=== PATIENT | male | born 1955 | race Caucasian/White ===

== ENCOUNTER → 2017-04-16 16:25 | Outpatient (CLI) | payer BC, SELFPAY ==
[2017-04-16 17:29] LABS: Absolute Lymphocyte Count 1.87 X10^3/ul (0.83-4.51); Basophil# 0.03 X10^3/uL; Basophil% 0.4 % (0-1); Eosinophil# 0.17 X10^3/uL; Eosinophils% 2.5 % (0-5); Hematocrit 45.3 % (40-54); Hemoglobin 14.9 g/dl (13.0-16.5); Lymphocyte # 1.87 X10^3/ul (4.0); Lymphocyte % 27.4 % (19-41); Mean Corp Hgb Conc 32.9 g/gl (32-36); Mean Corpuscular Hgb 30.3 pg (27.0-32.0); Mean Corpuscular Volume 92.3 fL (80-94); Monocyte# 0.79 X10^3/uL; Monocyte% 11.6 % (0-10); Neutrophil # 3.95 X10^3/uL (2.7-7.7); Neutrophil % 57.8 % (47-70); Platelet Count 189 K/mm3 (150-450); RBC Distribution Width CV 13.7 % (11.6-14.6); RBC Distribution Width SD 46.1 fl (35.1-43.9); Red Blood Count 4.91 M/mm3 (4.6-6.2); White Blood Count 6.8 K/mm3 (4.4-11.0)
[2017-04-16 17:44] LABS: POSITIVE COUNT NO; POSITIVE DIFFERENTIAL NO; POSITIVE MORPHOLOGY NO
[2017-04-16 18:13] LABS: ALB/GLOB Ratio 1.3 RATIO (0.9-2.4); AST(SGOT) 17 U/L (15-37); Alanine Aminotransfer ALT/SGPT 29 U/L (16-61); Albumin, Serum 4.2 g/dL (3.2-5.0); Alkaline Phosphatase 76 U/L (45-117); Anion Gap 5 (5-15); BUN 17 mg/dL (7-18); BUN/Creat Ratio 15.3 RATIO (10-20); Calcium,Total 8.4 mg/dL (8.5-10.1); Chloride 104 mmol/L (98-107); Creatinine, Serum 1.11 mg/dL (0.70-1.30); EST Glomerular Filtration Rate 71 mL/min (>60); Est Glom Filt Rate - Afr Amer 86 mL/min (>60); Globulin 3.2 g/dL (2.2-4.2); Glucose 62 mg/dL (74-106); PSA,Total - Annual Screen 1.99 ng/mL (0.00-4.00); Potassium 4.5 mmol/L (3.5-5.1); Protein, Total 7.4 g/dL (6.4-8.2); Sodium Level 138 mmol/L (136-145); Thyroid Stim Hormone (TSH) 0.87 uIU/mL (0.358-3.74)
[2017-04-18 11:13] LABS: Hep C Antibodies <0.1 s/co ratio (0.0-0.9)
== END ==
PROVIDERS: Family Provider Family Medicine Geriatric Medicine; PCP Family Medicine Geriatric Medicine; Visit Provider Family Medicine Geriatric Medicine
DX: Z13.89 Encounter for screening for other disorder (principal); Z12.5 Encounter for screening for malignant neoplasm of prostate; R53.83 Other fatigue
CPT/HCPCS: 36415; 80053; 84153; 84443; 85025; 86803; G0103

== ENCOUNTER → 2017-09-01 13:36 | Outpatient (CLI) | payer BC, SELFPAY | PROVIDERS: Family Provider Family Medicine Geriatric Medicine; PCP Family Medicine Geriatric Medicine; Visit Provider Family Medicine Geriatric Medicine | DX: N39.0 Urinary tract infection, site not specified (principal); R60.0 Localized edema | CPT/HCPCS: 36415; 85379; 87086 ==

== ENCOUNTER 2018-10-10 12:54 | Emergency (ER) | payer BC, SELFPAY ==
[2018-10-10 12:55] VITALS: BP 129/82; PULSE 74; RESP 18; TEMP 36.8; O2SAT 98; BMI 32.1
--- NOTE | 2018-10-10 13:21 | RAD_ITS ---
STUDY: X-RAY - LEFT HAND REASON FOR EXAM: Male, 63 years old. Trauma. Pain. Laceration to thumb TECHNIQUE: Three view(s) of the hand. COMPARISON: None. FINDINGS: Bones: Generalized osteopenia. Small ossific fragment at the first MCP joint which may represent a small avulsion fracture. Joints: Osteoarthrosis. Soft tissues: Soft tissue laceration in the CT Foreign body: None RAD/Hand Min 3 Views IMPRESSION: Soft tissue laceration with probable small avulsion fracture at the MCP joint. Osteopenia with osteoarthrosis. Electronically Signed: Dani Zhang MD at 13:57 EDT , Service support ,
--- NOTE | 2018-10-10 13:22 | ED.DCSUM_ITS ---
History of Present Illness Chief Complaint: Laceration Informant: Patient, Family Occurred: Today - JPTA Mechanism/Context: Injury Context: Sudden Onset Timing: Continuous Quality of Pain: Aching Current Severity: Mild Maximum Severity: Moderate Worsened by: moving Relieved by: remaining still Associated Symptoms: Negative for: Parasthesia, Weakness, Loss of Funtion Narrative: Patient is in very minimal amount of discomfort after injuring his left hand/thumb with a chainsaw with a new blade on it that accidentally kicked back. He is right-hand dominant. Denies any other injuries. No numbness distally in his thumb. He is not sure if he had tissue loss or not. Tetanus Immunization: 5-10 years - 10 yrs ago Past Medical History - Allergies and Home Meds Allergies/Adverse Reactions: Allergies No Known Allergies Allergy (Verified 10/10/18 12:57) Primary Care Physician: Care Physician,No Primary [Primary Care Provider] - Lives: With Family Drugs: None Review of Systems General: Denies: Chills, Fever, Sweats Gastrointestinal: Denies: Nausea, Vomiting Musculoskeletal: Reports: Extremity Pain. Denies: Swelling Skin: Reports: Wounds. Denies: Abscess Neurological: Denies: Headache, Weakness, Numbness Physical Exam Vital Signs/Narrative: Vital Signs Temp Pulse Resp BP Pulse Ox 10/10/18 12:55 98.3 F 74 18 129/82 H 98 General: Well nourished, Well developed, - - Well-appearing, NAD, conversive Head: Normocephalic, Atraumatic Extremeties: See skin exam for details of left hand laceration. He has full range of motion with all tendon abilities except for abduction of the thumb; he appears to have completely lacerated the abductor pollicis longus, when he attempts to abduct the thumb, it does abduct a little, probably because the brevis is intact, but the proximal longus tendon retracts back toward the wrist. Muscle in the thenar eminence is involved, there is no exposed bone or other important structure seen. There is minor venous oozing without any pulsatile arterial bleeding. Brisk cap refill thumb and fingers. Skin: Trauma - Full-thickness jagged, irregular wound to left hand involving the palm, thenar eminence, and the thumb, a total of approximately 10 cm in length. Questionable small amounts of tissue loss in the worst part near the thumb. No gross contamination seen. Neurological: Alert, Oriented x3, Cranial nerves II-XII grossly intact, Normal Strength, Normal Sensation Psychological: Normal affect, Normal Mood Diagnostic/Tx/Re-eval Clinical Impression(s) from Imaging Studies Hand X-Ray 10/10/18 13:21 IMPRESSION: Soft tissue laceration with probable small avulsion fracture at the MCP joint. Osteopenia with osteoarthrosis. Electronically Signed: Dani Zhang MD at 13:57 EDT , Service support , - Medical Decision Making Patient was sent an x-ray, it appears to show an avulsion fracture at the radial aspect of the distal thumb metacarpal. I do not see this clinically within the wound, but he clearly has complete laceration of his abductor pollicis longus, I believe. I do not see any other lacerated tendons and his range of motion is intact throughout. I discussed with Dr. De Jesus given that this was an open fracture, given the lack of gross contamination he does not think surgical washout would be necessary at this time. He recommends washing it out thoroughly at bedside which was done, close approximation with regards to suturing the wound, which was done, antibiotics, and close outpatient follow-up, he is having office hours within a couple days. I discussed with the patient to perform dressing changes within each few hours for the first day, drawing any bleeding away from the wound, replacing dressing with moist gauze and bacitracin ointment, keep a close eye for signs of any infection and to return to the ER immediately if he detects any. He was given an injection of Ancef here and a prescription for doxycycline given Dr. De Jesus's recommendation, and all questions answered at bedside they are comfortable with this overall plan. Discharged in a thumb spica Velcro splint so that he can easily take it off and perform dressing changes to inspect the wound. Procedures - Lacerations left hand/thumb Length: 10 cm Depth: Skin Shape: Stellate - w/ multiple flaps, probable small amount of tissue loss Prep: Sterile Conditions, Chlorhexadine Laceration repair: Irrigated, Lidocaine with epi - 2% (1% not avail), total 8cc Irrigated (ml): 250 - sterile saline under pressure Number of Sutures/[place]: 8 Suture Information: Ethilon, Simple, 4-0 Comment: Approximated fairly loosely, difficult to approximate tightly given multiple thin flaps of dermis, probable tissue loss, and complex stellate wound. Bleeding controlled. Tolerated well no complications. No gross contamination except for one small piece of wood on the surface of his skin near the laceration that was removed. ED Disposition - Plan for ED Patient: Disposition: Home or Assisted Living Diagnosis: Open fracture of shaft of metacarpal bone of left thumb, Laceration of left thumb with tendon involvement, Tetanus-diphtheria (Td) vaccination Instructions: LACERATION, Extrem (Suture, Staple or Tape), LACERATION, Tendon Prescriptions: Doxycycline Hyclate 1 cap PO BID #20 cap Prescription Printed Hydrocodone Bitart/Apap 5-325 [[place] 5MG-325MG] 1 tab PO Q4H PRN PRN 3 Days #18 tab PRN Reason: Pain Prescription Printed Referrals: Ralph De Jesus MD [STAFF PHYSICIAN] - 10/13/18 (call Tues AM for appt time on thursday office hours) Additional Instructions: Change dressing every 2 or 3 hours for the rest of today then as needed when dressings become wet/bloody tomorrow and thereafter. Wet the gauze, ring it out , placed on the wound with antibiotic ointment. Treat any pain with the prescription. When you are not doing dressing changes, keep the splint on. Avoid submerging your hand in any liquids. If you have any pus discharge, increasing redness, or swelling in your thumb, or fevers, return to the ER immediately.
[2018-10-10] MEDS: Diphth,Pertuss(Acell),Tet Vac 0.5 ML Vial IM (14:05)
[2018-10-10] MEDS: Cefazolin 1 GM/5 ML Vial IM (14:05)
[2018-10-10 15:02] VITALS: BP 141/89; PULSE 68; RESP 16; O2SAT 96
[2018-10-10 16:42] VITALS: BP 148/62; PULSE 78; RESP 18; O2SAT 99
== END 2018-10-10 16:43 | disposition home or self-care (01) ==
PROVIDERS: Emergency Provider Emergency Medicine
DX: S62.242B Displaced fracture of shaft of first metacarpal bone, left hand, initial encounter for open fracture (principal); S56.322A Laceration of extensor or abductor muscles, fascia and tendons of left thumb at forearm level, initial encounter; S61.022A Laceration with foreign body of left thumb without damage to nail, initial encounter; Z23 Encounter for immunization; W29.3XXA Contact with powered garden and outdoor hand tools and machinery, initial encounter; Y93.9 Activity, unspecified; Y92.9 Unspecified place or not applicable; M19.042 Primary osteoarthritis, left hand; M85.842 Other specified disorders of bone density and structure, left hand
CPT/HCPCS: 12004; 73130; 90471; 90715; 96372; 99285

== ENCOUNTER 2018-10-14 14:04 | Observation (INO) | payer BC, SELFPAY ==
[2018-10-12 16:02] VITALS: BMI 31.7
[2018-10-14] VITALS (9 sets, daily range): BP systolic 114–159; BP diastolic 60–99; PULSE 70–95; RESP 16–18; TEMP 35.9–37.4; O2SAT 95–100; BMI 31.6; BMI 31.7
--- NOTE | 2018-10-14 | MISC_PTH ---
PATIENT: RAND MELVIN LOC: [facility] U#:[id number] AGE/SX: 63/M ROOM: AR305 RE10/14/[address]: Dr. Ralph De Jesus MD : 1955 BED: 1 DIS: 10/15/2018 SPEC #: [id number] RECD: 10/14/18 13:48 STATUS: DUSTIN RELyssa #: [id number] UMANG: 10/14/18 00:[address]: Ralph De Jesus DEPT: SURGICAL PATHOLOGY RECD BY: Jeramy Ovalles ENTERED: 10/14/18 13:48 SP TYPE: [facility] [place]: Dr. Jarrett Lyon MD Tissues: A - Hand, NOS Bone of hand, NOS Procedures: Decalcification bone/plaque Surgery Specimen Level III HEADER OPERATION: Exploration laceration thumb and thenar eminence intrinsic PRE-OP DIAGNOSIS: 10 cm chain saw laceration left palm in thenar eminence area with extension onto dorsum left thumb just proximal to MP joint (zone 6); laceration intrinsic muscles thenar eminence left palm (abductor pollicis brevis, flexor pollicis brevis and opponens pollicis; extensor pollicis brevis tendon laceration dorsum left thumb just proximal to MP joint (zone 6); small avulsion fracture metacarpal head at MP joint left thumb TISSUE SUBMITTED: A - Soft tissue left hand at thenar eminence, B - Bone left hand at thenar eminence MICROSCOPIC DIAGNOSIS A. Soft tissue left hand at thenar eminence: Fragments of skin and fibroconnective and fibroadipose tissue with focal ulceration and associated acute and chronic inflammation. A few fragments of bone. A few fragments of refractile foreign material. B. Bone left hand at thenar eminence: A piece of bone with reactive changes. SJ:lakisha 10/20/18 MICROSCOPIC DESCRIPTION Slides are reviewed. GROSS DESCRIPTION A - Received in fixative is one container labeled with the patient's name and designated soft tissue left hand at thenar eminence. The specimen consists of multiple irregular fragments of pink-red soft tissue that in aggregate measure 2 x 2 x 0.3 cm. The entire specimen is submitted in one cassette. B - Received in fixative is one container labeled with the patient's name and designated bone left hand at thenar eminence. The specimen consists of a fragment of bone measuring 0.5 x 0.5 x 0.2 cm. The entire specimen is submitted in one cassette after decalcification. / SJ:lakisha 10/14/18 TC:2 CPT: 15150 x2, 67230
--- NOTE | 2018-10-14 00:11 | PCM.HP.BLA ---
History and Physical Date of Admission: 10/14/18 HISTORY OF PRESENT ILLNESS 63 year old man who is right hand dominant, sustained an injury to his left hand/thumb with a chainsaw on 10/10/18. There was a new blade on it, and there was accidental kickback. He denies numbness. He has difficulty flexing his left thumb into the palm. X-ray was done in the ED which showed a small avulsion fracture at the MP joint left thumb. The wound extended from the thenar eminence onto the dorsal surface left thumb just proximal to MP joint (zone 6). The wound was cleansed and suture repaired in the hospital. A thumb spica splint was applied. He was given scripts for Doxycycline and [place]. He has some pain in his left hand. He presents today for further evaluation and treatment. PAST MEDICAL HISTORY Hearing problem High cholesterol History of gangrene Hypothyroid Restless legs syndrome (RLS) PAST SURGICAL HISTORY removal of neoplasm of skin ALLERGIES No Known Allergies MEDICATIONS Doxycycline Hydrocodone Bitart/Apap 5-325 [[place] 5MG-325MG] Levothyroxine Sodium [Synthroid] Pravastatin ibuprofen meloxicam FAMILY HISTORY Other - Arthritis, High cholesterol, Thyroid disorder SOCIAL HISTORY Smoking Status: Former smoker alcohol intake: never substance use type: does not use REVIEW OF SYSTEMS General - Denies fever, fatigue, and weight loss. Eyes - Denies cataracts and glaucoma. ENT - Denies nasal congestion and sore throat. Endocrine - Denies excessive thirst and urination. Has thyroid disease. Skin - Denies suspicious lesions and skin cancer. Musculoskeletal - Has joint pain, joint stiffness, weakness of muscles and joints, back pain, and arthritis. Has laceration thenar eminence left palm with extension onto dorsal left thumb just proximal to MP joint (zone 6). Has small avulsion fracture at MP joint left thumb. Neuro - Denies headaches. Cardiovascular - Denies chest pain, fatigue, and shortness of breath with exertion. Psych - Denies anxiety and depression. Respiratory - Denies chronic cough and shortness of breath. Gastrointestinal - Denies nausea, vomiting, diarrhea, and constipation. Hematologic - Denies abnormal bruising and bleeding. Genitourinary - Denies hematuria and urinary frequency. PHYSICAL EXAMINATION General - Alert and Oriented. HEENT - PERRL. EOMI. Throat is clear. Neck - Supple and nontender. No cervical adenopathy. Lungs - Clear to auscultation. Heart - Regular rate and rhythm. Abdomen - Soft and nondistended. Extremities - FROM right upper extremity. Patient is right hand dominant. No axillary adenopathy. Radial pulses are palpable. In the left palm in the thenar eminence area with extension onto dorsum left thumb just proximal to MP joint is a 10 cm laceration (zone 6). It is suture repaired. Mild swelling seen. Has trouble with thumb flexion into the palm and thumb extension at the MP joint. Can flex and extend at the IP joint. No sensory deficits to pin prick. Neuro - CN II-XII grossly intact. Psych - Normal mood and affect. ASSESSMENT 1. 10 cm chain saw laceration left palm in thenar eminence area with extension onto dorsum left thumb just proximal to MP joint (zone 6). 2. Laceration intrinsic muscles thenar eminence left palm (abductor pollicis brevis (APB), flexor pollicis brevis (FPB), and opponens pollicis (OP)). 3. Extensor pollicis brevis (EPB) tendon laceration dorsum left thumb just proximal to MP joint (zone 6). 4. Small avulsion fracture metacarpal head at MP joint left thumb. 5. Former smoker. PLAN X-ray reviewed. Continue Doxycycline antibiotics. Recommend operative exploration of the complex wound left hand. Will repair the thenar muscles, APB, FPB, and OP. Will repair the extensor tendon laceration (EPB) in zone 6. If the palmar branch of the median nerve is injured, that will be repaired. Will check the EPL and FPL tendons as well. They may be partially injured and would be repaired as well. Will look at the small avulsion fracture at MP joint. It appears too small to fixate. Will probably just debride it and then proceed with a thumb spica splint. Surgery will be under general anesthesia and tourniquet control on an outpatient basis. Tissue that is debrided will be sent to Pathology for analysis. Depending on the muscle damage done by the chain saw, some tissue may be sent to Microbiology for culture. A positive culture will necessitate antibiotic therapy. Postop will need to go to OT for a silastic splint and after healing, then range of motion exercises, strengthening, and edema management. Patient was informed of the risks and complications of the procedure including alternatives to surgery. These were discussed with the patient personally. Patient voices understanding and wishes to proceed. Some of the risks and complications were included in a form from the [employer] [employer]. Some of the risks and complications that were discussed included but were not inclusive of failure to diagnose including symptom relief, pain, infection, numbness, stiffness, loss of digit, RSD (CRPS), need for further surgery, contracture, and wound healing problems.
[2018-10-14] MEDS: Cefazolin 2 GM in 0.9% Normal Saline 100 ML IV (09:21)
[2018-10-14] MEDS: Mupirocin Ointment 22gm Tube 1 APPLIC (11:00)
--- NOTE | 2018-10-14 11:42 | OP.PCM_ITS ---
Report of Operation Date of Procedure: 10/14/18 Pre-Operative Diagnosis: 1. 10 cm chain saw laceration left palm in thenar eminence area with extension onto dorsum left thumb just proximal to MP joint (zone 6). 2. Laceration intrinsic muscles thenar eminence left palm (abductor pollicis brevis (APB), flexor pollicis brevis (FPB), and opponens pollicis (OP)). 3. Extensor pollicis brevis (EPB) tendon laceration dorsum left thumb just proximal to MP joint (zone 6). 4. Small avulsion fracture metacarpal head at MP joint left thumb. 5. Former smoker. Post-Operative Diagnosis: 1. 10 cm chain saw laceration left palm in thenar eminence area with extension onto dorsum left thumb just proximal to MP joint (zone 5-6). 2. Laceration intrinsic muscles thenar eminence left palm (abductor pollicis brevis (APB), flexor pollicis brevis (FPB), and opponens pollicis (OP)). 3. Extensor pollicis brevis (EPB) tendon laceration dorsum left thumb at MP joint (zone 5). 4. Small avulsion fracture radial aspect metacarpal head near MP joint left thumb. 5. Radial collateral ligament injury MP joint left thumb. 6. Former smoker. Surgery/Procedure Performed:: 1. Exploration 10 cm chain saw laceration left palm in thenar eminence area with extension onto dorsum left thumb just proximal to MP joint (zone 5-6) with 14 complex closure. 2. Repair laceration intrinsic muscles thenar eminence left palm (abductor pollicis brevis (APB), flexor pollicis brevis (FPB), and opponens pollicis (OP)). 3. Repair extensor pollicis brevis (EPB) tendon laceration dorsum left thumb at MP joint (zone 5). 4. Debridement small avulsion fracture radial aspect metacarpal head near MP joint left thumb. 5. Repair radial collateral ligament injury MP joint left thumb. Description of Surgical Findings:: 63 year old man who is right hand dominant, sustained an injury to his left hand/thumb with a chainsaw on 9/1/19. There was a new blade on it, and there was accidental kickback. He denies numbness. He has difficulty flexing his left thumb into the palm. X-ray was done in the ED which showed a small avulsion fracture at the MP joint left thumb. The wound extended from the thenar eminence onto the dorsal surface left thumb just proximal to MP joint (zone 6). The wound was cleansed and suture repaired in the hospital. A thumb spica splint was applied. He was given scripts for Doxycycline and [place]. He has some pain in his left hand. Patient was informed of the risks and complications of the procedure including alternatives to surgery. These were discussed with the patient personally. Patient voices understanding and wishes to proceed. Some of the risks and complications were included in a form from the [place] [employer]. Some of the risks and complications that were discussed included but were not inclusive of failure to diagnose including symptom relief, pain, infection, numbness, stiffness, loss of digit, RSD (CRPS), need for further surgery, contracture, and wound healing problems. Total tourniquet time - 110 minutes. Size of wound defect thenar eminence left palm - 4 x 1.5 cm. Length of wound closure thenar eminence left palm and left thumb - 14 cm. Extensor pollicis longus (EPL) tendon intact. Flexor pollicis longus (FPL) tendon intact. Radial digital nerve intact. 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 Left thenar eminence and thumb soft tissue to Pathology and Microbiology. 2. Left thumb metacarpal bone avulsion fracture to Pathology and Microbiologoy. Drains: None. Estimated Blood Loss (mL): 25 ml. Description of Procedure: Patient was taken to OR in supine position and was placed under general anesthesia. The left hand was prepped and draped in the usual fashion. SCD's were placed for DVT prophylaxis. Perioperative antibiotics were given intravenously. The left hand was elevated and was wrapped with an Esmarch bandage. The tourniquet was elevated to 250 mmHg. Using loupe magnification, the sutures were removed. The thenar muscles were lacerated and there was under mining proximally toward the wrist. There was an extensor tendon injury (EPB) over the MP joint of the thumb (zone 5). The wound was extended in a proximal and distal direction in a zig zag fashion to get better exposure to the injuries. The MP joint was lax as there was a radial collateral ligament injury. There is a small avulsion fracture radial aspect metacarpal head near MP joint left thumb, and the bone was debrided. The metacarpal bone was stable with no evidence of instability. There was some nonviable muscle edges that was debrided. The radial collateral ligament was repaired with 3-0 Vicryl figure of eight interrupted sutures. The extensor pollicis brevis (EPB) tendon laceration was repaired with 4-0 Nylon figure of eight interrupted sutures. There was injury to the thenar muscles (abductor pollicis brevis (APB), flexor pollicis brevis (FPB), and opponens pollicis (OP)). They were repaired without tension with 3-0 Vicryl figure of eight interrupted sutures. The extensor pollicis longus (EPL) tendon was seen and intact and preserved. The flexor pollicis longus (FPL) tendon was seen at the base of the thenar muscle injury and it was intact and preserved. The radial digital nerve of the thumb was seen and intact and preserved. I could not identify the palmar cutaneous branch of the median nerve as it traverses over the thenar muscles secondary to the oscillating nature of the chain saw injury leading to some tissue loss. The wounds were irrigated with saline. The soft tissue and bone was sent to Pathology and Microbiology for analysis to evaluate for infection and for osteomyelitis. The tourniquet was released after 110 minutes. Hemostasis obtained with compression and elevation and electrocautery. The wounds were then closed with 5-0 Nylon s imple interrupted sutures and vertical mattress interrupted sutures. Due to the severity of the injury and the swelling present and the amount of tissue debrided, there was a portion of the wound on the thenar eminence that was left open. The wound measured 4 x 1.5 cm. The length of the wound that was closed was 14 cm. I packed the thenar eminence wound with 4x4 gauze and Betadine. I placed Bactroban ointment over the suture lines. The wounds were then dressed with Xeroform gauze and 4x4 gauze followed by a dry Kerlix gauze and a plaster thumb spica splint and compression YVONNE wrap. Patient tolerated the procedure well and was sent to PACU in satisfactory condition. Preoperatively the patient stated he wanted to go home and will be sent home on antibiotics and pain medication and Valium for spasm. Patient will followup in the office tomorrow for a wound dressing change and will instruct the family on the dressing change and for discussion of the pathology report and Microbiology report. A positive culture may necessitate antibiotic modification. The sutures will be removed in two weeks. I discussed with the patient and his family that due to the severity of the wounds, the postop pain may be severe enough to need IV analgesia in which case he would be admitted for a surgical observation overnight stay in the hospital. They will let me know prior to discharge whether he still wants to go home or whether he wants to spend the night. Grafts/Implants Used: Thumb spica plaster splint. - Complications None. - Admit VTE Documentation VTE Present on Admission: No VTE Mechan Device Prophylaxis: SCD's VTE Pharm Prophylaxis ordered?: No Code Visit Surgery Charges CPT - 36769 ICD-10 - W31.2xxA, S66.422A, S62.292B, S66.222A, S69.92xA, Z87.891 09727 W31.2xxA, S66.422A, S62.292B, S66.222A, S69.92xA, Z87.891 [id number] W31.2xxA, S66.422A, S62.292B, S66.222A, S69.92xA, Z87.891 [id number] W31.2xxA, S66.222A, S62.292B, S69.92xA, S66.422A, Z87.891 09953 W31.2xxA, S69.92xA, S66.422A, S66.222A, S62.292B, Z87.891 [id number] W31.2xxA, S62.292B, S69.92xA, S66.422A, S66.222A, Z87.891 [id number] W31.2xxA, S66.422A, S66.222A, S69.92xA, S62.292B, Z87.891 52739 W31.2xxA, S66.422A, S66.222A, S69.92xA, S62.292B, Z87.891 [id number] W31.2xxA, S66.422A, S66.222A, S69.92xA, S62.292B, Z87.891
[2018-10-14] MEDS: Lactated Ringers 1,000 ML 100 ML IV ×3 (11:54→23:10)
--- NOTE | 2018-10-14 11:55 | DCINST_ITS ---
You will use the following diet at home:: No restrictions, Other - encourage nutritional supplementation with protein to help the healing process. Discharge Activity: May Not Drive, May Shower - wear plastic bag over left hand when showering. Return to work on:: 12/10/18 - tentative. May shower in (days): 1 - wear plastic bag over left hand when showering. May resume sexual activity in: 10-14 days Weight Bearing Status: Weight bearing as tolerated Lifting Restrictions: no lifting with left hand. Keep extremity elevated above heart level: Left Arm Call your doctor if your incision/area has: Continuous Slow Oozing, Sudden Increased Bleeding, Increased Pain/ Swelling, Increased Redness, Foul Smelling Discharge, Swelling at the incision site Call your doctor if you observe: Fever of 101 or Higher, Coldness, Increased Pain, Shortness of breath, Chest pain, Calf discomfort, Uncontrolled pain Suture Line Care: - - will instruct patient on wound care after dressing change in office. Change Dressing in (Days):: 1 - will change in office. Cleanse incision/area with: - - wear plastic bag over left hand when showering. Additional Dressing/Incision Instructions:: Will instruct patient and family on dressing changes wound care after first operative dressing change in office tomorrow. Allergies/Adverse Reactions: Allergies No Known Allergies Allergy (Verified 10/13/18 09:39) Medications to take at Discharge Hydrocodone Bitart/Apap 5-325 [[place] 5/325] 1 tab PO Q4H PRN PRN 3 Days #18 tab 10/10/18 Levothyroxine Sodium [Synthroid] 150 mcg PO DAILY 10/10/18 Pravastatin Sodium 80 mg PO QHS 10/10/18 meloxicam 7.5 mg tablet 7.5 mg PO DAILY 10/12/18 Diazepam [Valium] 5 mg PO 4X/DAY PRN PRN #30 tab 10/14/18 Doxycycline Hyclate 1 cap PO BID #30 cap 10/14/18 HYDROmorphone tablet [Dilaudid] 2 - 4 mg PO 4X/DAY PRN PRN 7 Days #50 tab 10/14/18 Lactobacillus Acidophilus/Fos [Acidophilus Probiotic Tablet] 1 ea PO BID #60 tab 10/14/18 The following prescriptions were given: Lactobacillus Acidophilus/Fos [Acidophilus Probiotic Tablet] 1 ea PO BID #60 tab Prescription Printed HYDROmorphone tablet [Dilaudid] 2 - 4 mg PO 4X/DAY PRN PRN 7 Days #50 tab PRN Reason: Pain Prescription Printed Doxycycline Hyclate 1 cap PO BID #30 cap Prescription Printed Diazepam [Valium] 5 mg PO 4X/DAY PRN PRN #30 tab PRN Reason: Spasms Prescription Printed Primary Care Physician: Jarrett Lyon MD [Primary Care Provider] - Test Results: Test results from this visit will be discussed in further detail at your follow- up appointment, if applicable. Please Follow Up With: Ralhp De Jesus MD When: pedrito 10/15/18. call [phone] for appt. Proposed Discharge Date: 10/14/18
[2018-10-14] MEDS: HYDROmorphone 2 MG TABLET PO ×2 (12:30→17:30)
[2018-10-14] MEDS: HYDROmorphone 1 MG/ML Syringe IV (19:18)
[2018-10-14] MEDS: Docusate Sodium 100 MG Capsule PO (20:51)
--- NOTE | 2018-10-14 21:43 | PCM.PN.BLA ---
Progress Note Patient complained of increasing pain after his surgery today, and po analgesia was not effective. Will admit him overnight for surgical observation and for IV analgesic pain control. Anticipate discharge home tomorrow. Will change his dressing prior to discharge and do an Aquacel Silver dressing change.
[2018-10-15 05:57] VITALS: BP 112/68; PULSE 82; RESP 18; TEMP 37.3; O2SAT 96
[2018-10-15] MEDS: 0.9% NaCl Peripheral Flush Adult/Peds IV ×2 (06:05→10:11)
[2018-10-15] MEDS: HYDROmorphone 2 MG TABLET PO (06:05)
[2018-10-15 06:22] LABS: Hematocrit 41.1 % (40-54); Hemoglobin 13.5 g/dL (13.0-16.5); Mean Corp Hgb Conc 32.8 g/dL (32-36); Mean Corpuscular Hgb 30.7 pg (27.0-32.0); Mean Corpuscular Volume 93.4 fL (80-94); Mean Platelet Vol. 10.2 fl (6.2-12.0); Platelet Count 245 K/mm3 (150-450); RBC Distribution Width CV 12.6 % (11.6-14.6); RBC Distribution Width SD 43.1 fl (35.1-43.9)
[2018-10-15 06:45] LABS: Anion Gap 7 (5-15); BUN 18 mg/dL (7-18); BUN/Creat Ratio 20.8 RATIO (10-20); Calcium,Total 8.9 mg/dL (8.5-10.1); Chloride 105 mmol/L (98-107); Creatinine, Serum 0.87 mg/dL (0.70-1.30); EST Glomerular Filtration Rate 95 mL/min (>60); Est Glom Filt Rate - Afr Amer 114 mL/min (>60); Estimated Creatinine Clearance 98.22 ml/min; Glucose 99 mg/dL (74-106); Prealbumin 18.1 mg/dL (20.0-40.0); Sodium Level 142 mmol/L (136-145)
[2018-10-15 08:21] VITALS: BP 127/72; PULSE 95; RESP 16; TEMP 37.1; O2SAT 96
[2018-10-15 08:40] VITALS: PULSE 95; RESP 16; O2SAT 96
[2018-10-15] MEDS: Lactated Ringers 1,000 ML 100 ML IV (09:32)
[2018-10-15] MEDS: Docusate Sodium 100 MG Capsule PO (09:33)
[2018-10-15] MEDS: HYDROmorphone 1 MG/ML Syringe IV (10:11)
--- NOTE | 2018-10-15 10:58 | PCM.PN.SRG ---
- Physical Exam General: Alert, Oriented x3, Cooperative HEENT: Atraumatic Oral: Moist Mucosa Lungs: Clear to auscultation, Normal air movement Cardiovascular: Regular rate, Regular Rhythm Abdomen: Bowel Sounds Present Extremities: Cool - Left hand pink but cool to touch. Capillary refill < 3 seconds all fingers and thumb. Radial and ulnar pulses palpable and strong., Edema, Tenderness - Left hand and left thumb with tenderness with palpation and movement. Skin: Ulcer/ Wound - Left palmar and left thumb. Opened area beefy pink. Sutures intact. Musculoskeletal: No Tenderness to Palpation of Joints or Extremities Neurological: Cranial nerves II-XII grossly intact, Neuro grossly intact Psych/Mental Status: Normal Affect, Appropriate Vital Signs Temp Pulse Resp BP Pulse Ox 98.8 F 95 16 127/72 H 96 10/15/18 08:21 10/15/18 08:21 10/15/18 08:21 10/15/18 08:21 10/15/18 08:21 Oxygen Delivery Method Room Air Weight: 240 lb 4.862 oz Body Mass Index (BMI) 31.6 Intake and Output for Last 24 Hours 10/13/18 10/14/18 10/15/18 23:59 23:59 23:59 Intake Total 3748.34 / 3748.34 1863.33 / 1863.33 Output Total 1700 / 1700 2200 / 2200 Balance 2048.34 / 2048.34 -336.67 / -336.67 Microbiology Past 72 Hours 10/14/18 10:00 Gram Stain - Final Tissue - Finger 10/14/18 Unknown Gram Stain - Final Bone - Hand Laboratory Tests Past 24 Hrs 10/15/18 10/15/18 05:15 05:15 WBC 10.0 RBC 4.40 L Hgb 13.5 Hct 41.1 MCV 93.4 MCH 30.7 MCHC 32.8 RDW Std Deviation 43.1 RDW Coeff of [place] 12.6 Plt Count 245 MPV 10.2 Sodium 142 Potassium 4.0 Chloride 105 Carbon Dioxide 30.0 Anion Gap 7 BUN 18 Creatinine 0.87 Estim Creat Clear Calc 98.22 Est GFR (MDRD) Af Amer 114 Est GFR (MDRD) Non-Af 95 BUN/Creatinine Ratio 20.8 H Glucose 99 Calcium 8.9 Prealbumin 18.1 L Medical Necessity - Tobacco Use Smoking Status: Former smoker Tobacco Use: Non-smoker Assessment/Plan All Active Problems (Last Updated 10/12/18 @ 15:56 by Eva Brady) Open fracture of head of first metacarpal bone of left hand (Acute) Laceration of extensor muscle, fascia and tendon of left thumb at wrist and hand level, initial encounter (Acute) Laceration of intrinsic muscle, fascia and tendon of left thumb at wrist and hand level, initial encounter (Acute) Contact with powered saw as cause of accidental injury (Acute) Postop Day 1 from where he underwent exploration 10 cm chain saw laceration left palm in thenar eminence area with extension onto dorsum left thumb just proximal to MP joint (zone 5-6) and repair laceration intrinsic muscles thenar eminence left palm (abductor pollicis brevis (APB), flexor pollicis brevis (FPB), and opponens pollicis (OP)) and repair extensor pollicis brevis (EPB) tendon laceration dorsum left thumb at MP joint (zone 5) and debridement small avulsion fracture radial aspect metacarpal head near MP joint left thumb and repair radial collateral ligament injury MP joint left thumb. Patient's pain is well controlled with the Dilaudid. Surgical wound is clean and dry. Dressing was change by wound care nurse. Capillary refill < 3 seconds on left thumb and fingers. Instructed family that they do not need to change the dressing over the weekend. Encouraged patient to keep left hand elevated to help decrease pain and edema. He has an appointment at 4:00 at the office Thursday10/18/18. Discharge home today. Dr. De Jesus has written his prescriptions.
--- NOTE | 2018-10-15 11:20 | NURSING ---
wound photo: left thumb
--- NOTE | 2018-10-15 11:21 | NURSING ---
wound photo: left hand/thumb
[2018-10-15 11:42] VITALS: BP 140/72; PULSE 74; RESP 16; TEMP 36.6; O2SAT 97
== END 2018-10-15 11:50 | disposition home or self-care (01) ==
LOC: SDC 10-18 07:16 → MS3 10-18 07:16
PROVIDERS: Admitting Provider Surgery; Family Provider Family Medicine; PCP Family Medicine; Referring Provider Surgery; Visit Provider Surgery
PROC: (CPT 11044; principal; 2018-10-14 09:10)
DX: S62.292B Other fracture of first metacarpal bone, left hand, initial encounter for open fracture (principal); S66.222A Laceration of extensor muscle, fascia and tendon of left thumb at wrist and hand level, initial encounter; S66.422A Laceration of intrinsic muscle, fascia and tendon of left thumb at wrist and hand level, initial encounter; W29.3XXA Contact with powered garden and outdoor hand tools and machinery, initial encounter; Y93.9 Activity, unspecified; Y92.9 Unspecified place or not applicable; Y99.9 Unspecified external cause status; E03.9 Hypothyroidism, unspecified; E78.00 Pure hypercholesterolemia, unspecified; G25.81 Restless legs syndrome; Z79.899 Other long term (current) drug therapy; Z87.891 Personal history of nicotine dependence
CPT/HCPCS: 01810; 11044; 13132; 13133; 26418; 26540; 26591; 36415; 80048; 84134; 85027; 87070; 87075; 87077; 87102; 87176; 87205; 87206; 88304; 88305; 88311; 96361; 96365; 96366; 96375; 96376; 99218; J7120; A4216; G0378; G0379

== ENCOUNTER → 2018-11-12 09:57 | Outpatient (CLI) | payer BC, SELFPAY ==
[2018-11-09 10:08] VITALS: BMI 31.6
[2018-11-12 13:17] LABS: AST(SGOT) 17 U/L (15-37); Alanine Aminotransfer ALT/SGPT 32 U/L (16-61); Albumin, Serum 3.7 g/dL (3.2-5.0); Alkaline Phosphatase 99 U/L (45-117); Anion Gap 9 (5-15); BUN 25 mg/dL (7-18); Calcium,Total 8.8 mg/dL (8.5-10.1); Chloride 103 mmol/L (98-107); Creatinine, Serum 1.19 mg/dL (0.70-1.30); EST Glomerular Filtration Rate 66 mL/min (>60); Est Glom Filt Rate - Afr Amer 79 mL/min (>60); Globulin 3.6 g/dL (2.2-4.2); Glucose 98 mg/dL (74-106); Protein, Total 7.3 g/dL (6.4-8.2); Sodium Level 139 mmol/L (136-145)
== END ==
PROVIDERS: Family Provider Family Medicine; PCP Family Medicine; Referring Provider Nurse Practitioner Family; Visit Provider Nurse Practitioner Family
DX: S66.422A Laceration of intrinsic muscle, fascia and tendon of left thumb at wrist and hand level, initial encounter (principal); S66.222A Laceration of extensor muscle, fascia and tendon of left thumb at wrist and hand level, initial encounter; W31.2XXA Contact with powered woodworking and forming machines, initial encounter
CPT/HCPCS: 36415; 80053

== ENCOUNTER 2018-12-06 11:30 | Outpatient (RCR) | payer BC, SELFPAY ==
[2018-10-22 10:33] VITALS: BMI 31.6
[2018-10-25 16:56] VITALS: BMI 31.6
--- NOTE | 2018-10-26 15:21 | HP.OTEVAL ---
Patient's Visit Information RAND MELVIN is a 63 year old M, referred to Occupational Therapy by Ralph De Jesus MD, with a diagnosis of laceration of left hand. Date of Evaluation: 10/26/18 Occupational Therapist: Marizol Jones, MOMOR/Tanner, CHT - Subjective Subjective: This 63 year old male was seen for OT eval following a chain saw injury on 10/10/18 and sx was on 10/14/18. pt suffered a 10 cm chain saw laceration left palm in thenar eminence area with extension onto dorsum left thumb just proximal to MP joint (zone 5-6). 2. Laceration intrinsic muscles thenar eminence left palm (abductor pollicis brevis (APB), flexor pollicis brevis (FPB), and opponens pollicis (OP)). 3. Extensor pollicis brevis (EPB) tendon laceration dorsum left thumb at MP joint (zone 5). 4. Small avulsion fracture radial aspect metacarpal head near MP joint left thumb. 5. Radial collateral ligament injury MP joint left thumb. Pt arrives with sx dressing on. reports min. amount of pain but when hand is down he does get throbbing pain and swelling. Pt arrives for custom orthosis and protocol for recovery. - ADLs Dressing: Button shirt, Pants, Socks, Shoes Fasteners: Tie shoes, Buttons, Zippers Eating: Use silverware Bathing: Handle washcloth & soap Toileting: Manage clothing Comments: pt limited with all ADLS and IADLs at this time as pt is unable to use left hand for ADLs and IADLs at this time. can assist with ADLs as needed. - Pain left hand 2 Pain Intensity Range: 0, 4 - ROM Wrist: right WNL left will measure later date CMC: right WNL left will measure later date MP: right WNL left will measure later date IP: right WNL left will measure later date - Strength Epic Application Coordinator: right 110# left NT Lateral Pinch: right 20# left NT Tripod Pinch: right 18# left NT - Sensation Sensation Comments: denies - Quick DASH-Disab of Arm,Shoulder& Hand Quick DASH Score: 71.6650 - Goals Goal:100% adherence to protocol: Yes Comment: EPB zone 5 repair, APB, FPB,OP, FPL protocol Goal:Daily scar massage when approriate: Yes Goal:ROM equal to unaffected hand: Yes Goal:Epic Application Coordinator/Pinch strength at least 75% of unaffected hand: Yes Goal:No pain with affected hand use: Yes Goal:PIP Circumferences equal to unaffected hand: Yes Goal:Full use of affected hand in daily activities including: Yes Goal:Decrease scar hypersensitivity: Yes - Rehabilitation General Assessment: 10 cm chain saw laceration left palm in thenar eminence area with extension onto dorsum left thumb just proximal to MP joint (zone 5-6). 2. Laceration intrinsic muscles thenar eminence left palm (abductor pollicis brevis (APB), flexor pollicis brevis (FPB), and opponens pollicis (OP)). 3. Extensor pollicis brevis (EPB) tendon laceration dorsum left thumb at MP joint (zone 5). 4. Small avulsion fracture radial aspect metacarpal head near MP joint left thumb. 5. Radial collateral ligament injury MP joint left thumb. Pt demo need for skilled OT services 1-2x week for 8 weeks. Today custom orthosis was marin. keeping wrist in 20* flex and thumb in proper abd. position to protect tendon repairs. Pt and were ed. on use and care of the orthosis and protocol therapist will follow to ensure recovery from tendon repairs. Pt was instructed in tendon glide ex for digits, shoulder, elbow, forearm ROM to limit edema. pt demo understanding. Pt and demo understanding and agree to POC. Rehabilitation Potential: Good - Anticipated Interventions Anticipated Interventions: Early Active Motion, A/AAROM/PROM, Strengthening, Edema Control, Scar Care, Triggerpoint Release, Desensitization, Wound Care, Modalities, Orthoses, Joint Protection/Energy Conservation, Ergonomic Education, Fine Motor Coord/Willie - Visit Plan Frequency: 1-2x /Week Duration: 2 Months TEXT: Thank you for the opportunity to evaluate your patient. For Medicare and Medicare HMO plans, please review the plan of care and approve it. It will need to be FAXED BACK to us at [phone] for Medicare purposes. Please let me know if there are questions or concerns regarding this plan of care. Physician Signature: Date:
--- NOTE | 2019-02-23 10:17 | HP.OTDCSUM_ITS ---
HP - OT D/C Summary It has been my pleasure to treat RAND MELVIN under orders from Ralph De Jesus MD, for the diagnosis of laceration of left hand for a total of 8 visit(s). Please see the following information for a summary of their discharge status. 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 left MP 20* - Goals Patient Goals: Regain Mobility, Regain Strength, Return to Work, Improve Fine Motor Skills, Use Hand/Wrist/Arm Normally Again, Learn to Manage Lymphedema, Be More Independent in ADLS Goal:100% adherence to protocol: Yes Goal:Daily scar massage when approriate: Yes Goal:ROM equal to unaffected hand: Yes Goal:Oiler Bander/Pinch strength at least 75% of unaffected hand: Yes Goal:No pain with affected hand use: Yes Goal:PIP Circumferences equal to unaffected hand: Yes Goal:Full use of affected hand in daily activities including: Yes Goal:Decrease scar hypersensitivity: Yes - Plan Plan: return to for D/c - D/C Information Discharge Comments: Pt has done well in OT and is D/C with HEP and to cont. use of affected hand with normal daily tasks. If there are questions or concerns regarding this patient's occupational therapy, please fell free to call me at [phone]. Thank you for the referral of this patient. Sincerely, Marizol Jones, OTR/L, CHT
== END 2018-12-06 19:00 | disposition home or self-care (01) ==
LOC: OT 11:30
PROVIDERS: Family Provider Family Medicine; PCP Family Medicine; Visit Provider Surgery
DX: S66.4 Injury of intrinsic muscle, fascia and tendon of thumb at wrist and hand level (principal); S66.222D Laceration of extensor muscle, fascia and tendon of left thumb at wrist and hand level, subsequent encounter; S62.292B Other fracture of first metacarpal bone, left hand, initial encounter for open fracture; W31.2XXD Contact with powered woodworking and forming machines, subsequent encounter
CPT/HCPCS: 97035; 97110; 97140; 97166; 97530; 97760

== ENCOUNTER → 2018-12-09 10:50 | Outpatient (CLI) | payer BC, SELFPAY ==
[2018-12-09 10:29] VITALS: BMI 31.6
[2018-12-09 12:29] LABS: ALB/GLOB Ratio 1.1 RATIO (0.9-2.4); AST(SGOT) 21 U/L (15-37); Alanine Aminotransfer ALT/SGPT 33 U/L (16-61); Alkaline Phosphatase 106 U/L (45-117); Anion Gap 6 (5-15); BUN 23 mg/dL (7-18); BUN/Creat Ratio 22.1 RATIO (10-20); Calcium,Total 9.2 mg/dL (8.5-10.1); Chloride 104 mmol/L (98-107); Creatinine, Serum 1.04 mg/dL (0.70-1.30); EST Glomerular Filtration Rate 77 mL/min (>60); Est Glom Filt Rate - Afr Amer 93 mL/min (>60); Globulin 3.7 g/dL (2.2-4.2); Glucose 101 mg/dL (74-106); Potassium 4.2 mmol/L (3.5-5.1); Protein, Total 7.7 g/dL (6.4-8.2); Sodium Level 139 mmol/L (136-145)
== END ==
PROVIDERS: Family Provider Family Medicine; PCP Family Medicine; Referring Provider Nurse Practitioner Family; Visit Provider Nurse Practitioner Family
DX: S62.292B Other fracture of first metacarpal bone, left hand, initial encounter for open fracture (principal); S66.222A Laceration of extensor muscle, fascia and tendon of left thumb at wrist and hand level, initial encounter; S66.422A Laceration of intrinsic muscle, fascia and tendon of left thumb at wrist and hand level, initial encounter
CPT/HCPCS: 36415; 80053

== ENCOUNTER → 2020-11-05 08:55 | Outpatient (CLI) | payer BC, SELFPAY ==
[2018-12-09 10:29] VITALS: BMI 31.6
--- NOTE | 2020-11-05 09:13 | RAD_ITS ---
PROCEDURE: Fluoroscopic guided Hip Injection DATE: 11/05/2020. INDICATION: Male, 65 years old. Chronic left hip pain. PHYSICIAN: Thomas Rose M.D. MEDICATIONS: 40 mg of the KENALOG and 4 cc of 1% LIDOCAINE. 2% lidocaine administered subcutaneously for local anesthesia. ACCESS SITE: Left hip. NEEDLE: 22-gauge spinal needle. FLUOROSCOPY TIME (if supplied): (0:40) minutes/seconds FINDINGS: The risks, benefits, and alternatives to the procedure were explained to the patient. The specific risks of bleeding, infection, and neurovascular injury were detailed and accepted. Witnessed informed consent was obtained. A 22-gauge spinal needle was positioned under radiographic fluoroscopic localization. Approximately 2 cc of ISOVUE-300 instilled for localization purposes. Medication was then injected. The patient tolerated the procedure well without any immediate complications. RAD/Inj/Asp Wood Jt Should/Hip/Knee IMPRESSION: 1. Successful fluoroscopic guided hip injection. Electronically Signed: Thomas Rose MD at 9:49 EDT , Service support ,
[2020-11-05] MEDS: Lidocaine 1% (5 ml sdv) 5 ML Vial 4 ML OPERA.SITE (09:30)
[2020-11-05] MEDS: Lidocaine 2% (5ml sdv) 5 ML VIAL.MPF INFILT (09:30)
[2020-11-05] MEDS: Triamcinolone Acetonide 40 MG/ML Vial INTRAARTIC (09:30)
== END ==
LOC: RAD 08:57
PROVIDERS: PCP Family Medicine
DX: M16.12 Unilateral primary osteoarthritis, left hip (principal); G89.29 Other chronic pain
CPT/HCPCS: 20610; 77002

== ENCOUNTER → 2021-09-03 | Outpatient (CLI) | payer BC, SELFPAY ==
--- NOTE | 2021-09-03 16:34 | MRI_ITS ---
STUDY: MRI CERVICAL SPINE WITHOUT CONTRAST REASON FOR EXAM: Male, 66 years old. Neck pain, numbness in right arm and hand. TECHNIQUE: Standardized fat and water weighted pulse sequences were obtained in the sagittal and axial planes. COMPARISON: None FINDINGS: Normal foramen magnum and brainstem-cervical cord junction. Normal craniovertebral junction. Normal anterior atlantoaxial articulation. Normal odontoid process. Normal cervical lordosis. Degenerative bodies and posterior osseous elements. C2-3: Disc desiccation and relatively preserved disc space with minimal facet arthropathy and uncovertebral joint arthropathy without significant spinal canal narrowing or foraminal narrowing. C3-4: Degenerative disc changes and mild decreased disc space with minimal broad-based disc bulge with compounding facet arthropathy and uncovertebral joint arthropathy resulting in mild bilateral foraminal narrowing. C4-5: Degenerative disc changes and mild decreased disc space with bilateral facet arthropathy and uncovertebral joint arthropathy resulting in mild bilateral foraminal narrowing. C5-6: Disc desiccation and degenerative disc changes with mild decreased disc space. There is broad base disc bulge/disc osteophyte complex resulting in moderate right and left foraminal narrowing. Disc osteophyte complex abuts the ventral cord at this level with moderate spinal canal narrowing with anterior posterior space measuring 7 mm with normal anterior posterior diameter of 13 mm. C6-7: Degenerative disc changes and broad-based disc bulge is present with resultant moderate bilateral foraminal narrowing and moderate spinal canal narrowing with AP diameter measuring 9 mm. C7-T1: Normal endplates. Normal disc height, signal and morphology. Normal central canal and intervertebral neural foramina. Normal cervical cord. Normal visualized soft tissue structures. MRI/Spine Cervical (Routine) IMPRESSION: 1. C5-6 broad-based disc bulge/disc osteophyte complex resulting in moderate bilateral foraminal narrowing and spinal canal narrowing with AP diameter measuring 7 mm (normal 13 mm). 2. C6-7 moderate spinal canal narrowing due to broad-based disc bulge with AP spinal canal diameter measuring 9 mm (normal 13 mm). Moderate bilateral foraminal narrowing at this level is also noted. Additional degenerative changes as above. Electronically Signed: Georges Vines DO at 12:49 EDT ,
== END | disposition home or self-care (01) ==
LOC: MRI 16:34
PROVIDERS: PCP Family Medicine; Visit Provider Orthopaedic Surgery
DX: M50.20 Other cervical disc displacement, unspecified cervical region (principal)
CPT/HCPCS: 72141

== ENCOUNTER 2021-12-31 10:13 | Observation (INO) | payer BC, SELFPAY ==
--- NOTE | 2021-12-24 14:40 | CASEMGMT ---
TC to pt for RN CM assessment, no answer and forwarded to an unidentified voicemail.
[2021-12-24 16:36] LABS: International Normalized Ratio 1.1; Prothrombin Time (Protime)PT. 13.7 SECONDS (11.7-14.9)
[2021-12-24 16:55] LABS: Hemoglobin A1c 5.3 % (3.8-5.6)
[2021-12-24 16:58] LABS: Magnesium 2.5 mg/dL (1.6-2.6); Thyroid Stim Hormone (TSH) 6.63 uIU/mL (0.358-3.74)
[2021-12-26 15:23] LABS: Fructosamine 222 umol/L (0-285)
[2021-12-31] VITALS (12 sets, daily range): BP systolic 120–156; BP diastolic 71–92; PULSE 52–86; RESP 10–16; TEMP 36.1–36.7; O2SAT 96–100; BMI 30.7; BMI 30.5
--- NOTE | 2021-12-31 | HIP_PTH ---
PATIENT: RAND MELVIN LOC: [facility] U#:[id number] AGE/SX: 66/M ROOM: TX313 RE12/31/[address]: Dr. Zain Dennis DO : 1955 BED: 1 DIS: 01/01/2022 SPEC #: [id number] RECD: 12/31/21 13:09 STATUS: DUSTIN RELyssa #: [id number] UMANG: 12/31/21 00:[address]: Zain Dennis DEPT: SURGICAL PATHOLOGY RECD BY: Jeramy Ovalles ENTERED: 12/31/21 13:10 SP TYPE: TOTAL HIP OTHR DR: Dr. Jarrett Lyon MD Tissues: Hip, NOS Procedures: Decalcification bone/plaque Surgery Specimen Level IV HEADER OPERATION: ERAS, total hip replacement PRE-OP DIAGNOSIS: Osteoarthritis of left hip TISSUE SUBMITTED: Left hip bone MICROSCOPIC DIAGNOSIS Left hip bone, total hip replacement/resection: Femoral head with degenerative osteoarthritic changes. Fragments of fibroadipose tissue, fibroconnective tissue and reactive synovial tissue. DANIEL:lakisha 01/03/2022 MICROSCOPIC DESCRIPTION Slides are reviewed. GROSS DESCRIPTION Received is one container labeled with the patient's name and designated left hip bone. The specimen consists of a de la cruz femoral head with portion of femoral neck. The femoral head measures 4.5 x 4.5 x 4.5 cm and portion of the femoral neck measures up to 1.4 cm in length. The articular surface displays prominent osteophyte formation, eburnation and bone erosion. Also present in the specimen container are multiple irregular fragments of bone reamings and pink-yellow soft tissue measuring in aggregate 7 x 7.5 x 2 cm. Book Jogger sections are submitted in two cassettes as follows: 1 - soft tissue, 2 - bone after decalcification. / DANIEL:lakisha 12/31/2021 TC:5 CPT: 35791, 37693
[2021-12-31] MEDS: Lactated Ringers 1,000 ML 999 ML IV (06:57)
[2021-12-31] MEDS: Gabapentin 600 MG Tablet PO (06:58)
[2021-12-31] MEDS: Acetaminophen 500 MG Tablet 1000 MG PO ×3 (06:58→21:36)
[2021-12-31] MEDS: Celecoxib 200 MG Capsule 400 MG PO (06:58)
[2021-12-31] MEDS: Scopolamine 1mg/72hr Patch 1 PATCH TD (07:03)
[2021-12-31] MEDS: Lactated Ringers 1,000 ML 100 ML IV (07:04)
--- NOTE | 2021-12-31 07:30 | PCM.HP.BLA ---
History and Physical Date of Admission: 12/31/21 [facility] [address] [place] [address] OFFICE VISIT Date of Service:? 12/09/21 MR#: [id number] Acct: [id number] Name:RAND MYERS Rep #: [id number] : 1955 ? ? Provider: Dr. Zain Dennis, DO Age/Sex:? 66/M ? ? Location: [facility] [place] Status: Signed Intake Vital Signs ? 12/09/2214:07 Height 6 ft 1 in Weight: 241 lb 4 oz BMI 31.8 Intake Visit Reasons:?LEFT HIP Chief Complaint: left hip Is patient in pain?: Yes Allergies No Known Allergies Allergy (Verified 12/09/21 15:09) Medications levothyroxine 150 mcg tablet 150 mcg PO DAILY 10/10/18 [History Confirmed 12/09/21] pravastatin 80 mg tablet 80 mg PO QHS 10/10/18 [History Confirmed 12/09/21] [facility] Medical History? Contact with powered saw as cause of accidental injury Former smoker Graves disease Hearing problem High cholesterol History of gangrene Hypothyroid Injury of collateral ligament of finger of left hand Laceration of extensor muscle, fascia and tendon of left thumb at wrist and hand level, initial encounter Laceration of intrinsic muscle, fascia and tendon of left thumb at wrist and hand level, initial encounter Open fracture of head of first metacarpal bone of left hand Restless legs syndrome (RLS) Surgical History? Status post surgical removal of neoplasm of skin Family History? Other Arthritis High cholesterol Thyroid disorder Social History? Smoking Status:? Former smoker alcohol intake:? never substance use type:? does not use additional social history:? DOES NOT USE ASPIRIN DOES USE IBUPROFEN HPI LEFT HIP Details: Parts of this documentation were recorded by a scribe, this documentation accurately reflects the service provided and the decisions made by me, Dr. Zain Dennis, DO 12/09/21 1504. RAND MELVIN is a 66 year old M here today for continued left hip pain. Patient complains of pain over his groin. He has increased pain with all activities. He isnt able to carry anything greater than 15 pounds due to his pain. He has increased pain with crawling. Patient notes that he takes advil dual action for pain. He denies any numbness or tingling. Ortho Exam General General: Yes no acute distress Neurologic: Yes alert and Yes oriented x3 Psychologic: Yes reasonable and appropriate Left Hip Skin/Wound: Yes CDI, No Ecchymosis, No soft tissue swelling and No Erythema Hip: Absent eccymosis, soft tissue swelling, erythema or tender to palpate - internal rotation @90 degree flexion: 3 degrees external rotation @90 degree extension: 15 degrees Special Tests: Yes C sign; No TTP Greater Troch or Illiotibial band tenderness HIP: good ankle strength. no numbness or tingling.? Severely limited left hip range of motion Supplemental Info 05/08/2021 x-ray left hip:? advanced left hip arthrosis 05/08/2021 x-ray lumbar spine: There is multilevel endplate spondylosis of the lumbar vertebrae.? There is? multi-level degenerative disc disease with multi-level disc space narrowing.? There are atherosclerotic vascular calcifications.? \ Coding Level of Care Code Off vis,est,level 3 Diagnoses Osteoarthritis of left hip? M16.12 Assessment and Plan Assessment and Plan (1) Osteoarthritis of left hip: ?Status:?Acute Plan Patient would like to proceed with a total hip arthroplasty. Spoke with the patient about the surgery procedure, recovery and post op. He will need a CT scan for templating for the surgery. Spoke with him about the risks of surgery. Patient will be on a blood thinner post op. Risks, benefits and alternatives of surgery reviewed including but not limited to bleeding, infection, nerve, artery and/or tissue damage, fracture, VTE, leg length discrepancy, dislocation, need for hip precautions, continued pain and expected post-operative course.? Patient has a risk of a foot drop with the surgery. Patient will have 6 weeks of strict hip precautions but 3 months of restrictions.? He should sleep with a pillow between his legs. Patients surgery will be outpatient procedure. He will be able to drive when he feels comfortable safely control a vehicle and no pain medications. He should not take any advil or ibuprofen 7 days prior to surgery. plan for SDS No NSAIDS for 7 days prior to surgery tentative surgery date 12/31/21 Follow up for his 2 week post op or sooner if pain, swelling, numbness or associated symptoms, or concerns develop.? All questions answered. Patient in agreement of plan. 12/09/21 1600 <Electronically signed by Zain Dennis DO> Date Zain Dennis DO Cosigner Signature: Date (if applicable) ? CC:? Dr. Jarrett Lyon MD ~ I have examined the patient the following changes are noted: Patient's insurance did not cover CT scan for robotic assisted surgery. This was reviewed with the patient and the benefits of robotics was discussed he did wish to proceed without the robotic assistance and proceed with manual instrumentation for total hip.
[2021-12-31 07:36] LABS: Bedside Glucose 105 mg/dL (74-106)
[2021-12-31] MEDS: Cefazolin 2 GM in 0.9% Normal Saline 100 ML IV (08:17)
[2021-12-31] MEDS: dexAMETHasone 10 MG/ML Vial IV (08:20)
--- NOTE | 2021-12-31 10:14 | PCM.OP.BLANK ---
Operative Report Date of Procedure: 12/31/21 Preoperative diagnosis: DJD left hip Postoperative diagnosis: Same Procedure: Left total hip arthroplasty Implants: Cascade Locks Accolade II stem size 5 132 degree neck angle -5 neck length 56 mm cup with 30mm cancellous screw 36 mm ceramic head Anesthesia: Spinal EBL: 275 cc Complications: None Condition: Stable to PACU Indication for procedure: This is a 66-year-old male who has had long-standing arthrosis of the hip who has failed conservative treatment and wished to undergo total hip arthroplasty. We did discuss operative versus nonoperative intervention including risks of bleeding, infection , nerve artery tissue damage, need for further surgery, fracture, leg length discrepancy dislocation blood clot and need for postoperative physical therapy and postoperative expectations. An informed consent was signed. Procedure: Patient was met in the preoperative holding area once again the operative extremity was identified by both patient and physician and was marked. Patient was met by anesthesia and a spinal was placed. patient was then positioned in the lateral decubitus position on a well-padded pegboard with an axillary roll. All bony prominences were checked and padded. The patient was prepped and draped in the usual sterile fashion. A timeout was called to ensure the proper patient procedure and extremity were being contemplated. Anatomic landmarks were palpated and marked for a standard posterior lateral approach. A 10 blade scalpel was used to make a posterior incision through the skin and subcutaneous tissue. In retractors were used and electrocautery was used to maintain meticulous hemostasis and dissect full-thickness flaps until the gluteal fascia was reached. The gluteal fascia was incised in line with the gluteal fibers. The bursal tissue was then freed from the underside and a Charnley retractor was placed. The fat pad was elevated off of the external rotators with electrocautery and the external rotators were dissected off of the greater trochanter including the piriformis and were tagged with #1 Ethibond for later repair. The joint capsule opened with posterior trapdoor technique. The hip was surgically dislocated. wide Hohmann was placed around the lesser trochanter. A neck cutting guide was used to toa the neck with a Bovie and an oscillating saw was used complete the femoral neck cut. The femoral head was then removed and sized 50-52. We then turned our attention to the acetabulum. A Bovie was used to make a perforation in the anterior joint capsule and a pointed Hohmann was placed this was repeated in the 6 o'clock position a wide sebastian was placed there. With a long handled knife the labral and pulvinar tissue were removed. We then began sequential reaming until the appropriate size was achieved 56. We then fit the acetabular shell in place with good management department chair to the acetabulum. We then proceeded to place a posterior superior screw by drilling first measuring and inserting the screw. We then inserted a trial liner. And turned our attention back to the femur at this point a femoral elevator was used. As well as a pointed wide Hohmann around the lesser trochanter and a Hohmann to help retract the gluteus medius. A box chisel was used to remove excess lateral neck followed by a canal finder and a lateralizing reamer. This was followed by sequential broaches. Attention was made of the version within the canal. Once the final broach was seated we then trialed reduced the hip it was determined that a 132 degree neck angle with a -5 neck length was the appropriate size, he did have significant stiffness preoperatively and we did tension him slightly more he was 6 mm short on preoperative x-ray, I do not feel further lengthening would be tolerated with limited hip extension. We then checked ability with shuck testing as well as flexion and internal rotation. then proceeded with hip extension and checked leg lengths at the knees and heels. At this point trials were removed. A liner was inserted to the cup. The femoral stem was inserted. We re-trialed and then proceeded to impact the femoral head onto the Leo taper. We then surgically reduce the hip check stability again and leg lengths and were satisfied. Betadine rinse was allowed to sit for 5 minutes while everyone changed their gloves. Thorough irrigation was performed. Followed by closure of the external rotators with #2 FiberWire followed by closure of gluteal fascia with #1 Ethibond. 0 Vicryl fat stitches and 2-0 Vicryl subcutaneous stitches and imelda in the skin. Dressing was applied Mepilex Ag and an abduction pillow was placed. Patient tolerated the procedure well there was no intraoperative complications all counts were correct and the patient was brought back to the PACU in stable condition
--- NOTE | 2021-12-31 10:18 | DCINST_ITS ---
Discharge Instructions Activity Weight Bearing Status: Weight bearing as tolerated Dressing / Incision Call your doctor if you observe: Shortness of breath and Chest pain Additional Dressing/Incision Instructions:: Do not shower 72hrs. Begin daily showering warm water antibacterial soap postop day #3( 72hrs Post-operatively) and then daily. Leave the dressing on for 72 hours postoperatively then may remove prior to first shower and change dressing daily after this until no drainage for 2 consecutive days then may leave open to air. Follow hip precautions that were reviewed in hospital. Wear compression stockings, may remove at night. Start physical therapy as directed in hospital. Follow prescriptions instructions do not take any other pain medication or differ dosing without consulting your physician. Do not take oral NSAIDs until blood thinner has been completed , then may begin the day after completion if needed . Call Dr. Dennis's office with any concerns. Follow Up Care Please Follow Up With: Zain Dennis DO When: 2 weeks Test Results: Test results from this visit will be discussed in further detail at your follow- up appointment, if applicable. Discharge Plan Admission Admit Date/Time: 12/31/21 10:13 Primary Reason for Your Visit: Left total hip arthroplasty Attending Provider: Zain Dennis Primary Care Provider: Jarrett Lyon Discharge Orders/Prescriptions Prescriptions: New oxycodone 5 mg tablet 5 - 10 mg PO Q4H PRN (Reason: pain) 7 Days Qty: 60 0RF acetaminophen [acetaminophen] 500 mg tablet 1,000 mg PO Q6H PRN Qty: 100 0RF Eliquis 2.5 mg tablet 2.5 mg PO BID Qty: 42 0RF No Action pravastatin 80 MG tablet 80 mg PO QHS levothyroxine 150 MCG tablet 150 mcg PO DAILY ascorbic acid (vitamin C) [Vitamin C] 1,500 mg Tablet Extended Release 1,500 mg PO DAILY Referrals / Follow Up: Jarrett Lyon MD [Primary Care Provider] -
[2021-12-31] MEDS: Lactated Ringers 1,000 ML 125 ML IV ×2 (10:38→20:01)
[2021-12-31] MEDS: Cefazolin 1 GM/50 ML BAG IV ×2 (10:43→18:28)
--- NOTE | 2021-12-31 10:43 | RAD_ITS ---
STUDY: X-RAY - PELVIS AND LEFT HIP REASON FOR EXAM: Male, 66 years old. Postoperative evaluation after total hip arthroplasty. TECHNIQUE: 2 views of the pelvis and hip. COMPARISON: None. FINDINGS: New total hip arthroplasty in anatomic alignment with expected post-operative findings. No complications noted. RAD/Hip Min 2 Views (Portable) IMPRESSION: Placement of total hip arthroplasty in anatomic alignment without complications. Electronically Signed: Dani Zhang, at 10:56 EST ,
--- NOTE | 2021-12-31 15:14 | PN.ORTHO_ITS ---
Subjective Subjective Seen and examined postoperatively doing well awake pain controlled Objective Data Objective Data Vital Signs: Vital Signs Temp Pulse Resp BP Pulse Ox O2 Del Method O2 Flow Rate 97.8 F 74 16 134/71 H 100 Room Air 2 12/31/21 14:01 12/31/21 14:01 12/31/21 14:01 12/31/21 14:01 12/31/21 14:01 12/31/21 14:01 12/31/21 12:14 Oxygen Flow Rate (L/min) 2 Oxygen Delivery Method Room Air Weight: 231 lb 7.766 oz Body Mass Index (BMI) 30.5 Intake & Output: Intake and Output for Last 24 Hours 12/29/21 12/30/21 12/31/21 23:59 23:59 23:59 Intake Total 2280 / 2280 Balance 2280 / 2280 Lab / Micro Data Labs: Laboratory Results - last 24 hr 12/31/21 06:38: POC Glucose 105 Micro: Microbiology 12/24/21 15:37 Swab (Method) Nasal Screen MRSA/MSSA - Final Radiography Diagnostic Testing: Radiology Impression Hip X-Ray 12/31/21 10:43 IMPRESSION: Placement of total hip arthroplasty in anatomic alignment without complications. Electronically Signed: Dani Zhang, at 10:56 EST Reading Location ID and State: [facility] / [place] , Service support , Physical Exam Const alert, oriented x3 and no apparent distress Extremity Extremity Narrative: Dressing clean dry intact compartments soft neurovascular intact EHL tibialis anterior gastrocsoleus palpable pedal pulses Assessment & Plan Assessment/Plan (1) S/P total left hip arthroplasty: PLAN: Postop day #0 left total hip arthroplasty Doing well PT OT weightbearing as tolerated hip precautions DVT prophylaxis 2.5 mg of Eliquis twice daily for 3 weeks postop Pain control oxycodone 5 to 10 mg every 4 hours as needed pain Dressing should remain on for 72 hours then may remove prior to first shower at which time he may allow warm soapy water to run over the incision and pat dry and replace with a dry dressing after 72 hours this should be done daily. Follow-up in the office 2 weeks.
[2021-12-31] MEDS: Senna/Docusate Sodium 1 Tablet 2 TABLET PO (21:36)
[2021-12-31] MEDS: Pravastatin 80 MG Tablet PO (21:36)
[2022-01-01] VITALS (7 sets, daily range): BP systolic 121–141; BP diastolic 64–81; PULSE 72–96; RESP 16–18; TEMP 36.6–36.7; O2SAT 96–99
[2022-01-01] MEDS: Cefazolin 1 GM/50 ML BAG IV (03:43)
[2022-01-01] MEDS: Acetaminophen 500 MG Tablet 1000 MG PO ×2 (05:26→14:20)
[2022-01-01] MEDS: Levothyroxine 150 MCG Tablet PO (05:26)
[2022-01-01] MEDS: APIXABAN 2.5 MG TABLET (WCH) PO (06:36)
[2022-01-01 06:49] LABS: Hematocrit 38.4 % (40-54); Hemoglobin 13.2 g/dL (13.0-16.5); Mean Corp Hgb Conc 34.4 g/dL (32-36); Mean Corpuscular Hgb 31.5 pg (27.0-32.0); Mean Corpuscular Volume 91.6 fL (80-94); Mean Platelet Vol. 10.6 fl (6.2-12.0); Platelet Count 206 K/mm3 (150-450); RBC Distribution Width CV 12.5 % (11.6-14.6); RBC Distribution Width SD 42.2 fl (35.1-43.9); Red Blood Count 4.19 M/mm3 (4.6-6.2); White Blood Count 14.6 K/mm3 (4.4-11.0)
[2022-01-01 07:21] LABS: Anion Gap 6 (5-15); BUN 14 mg/dL (7-18); BUN/Creat Ratio 15.2 RATIO (10-20); Calcium,Total 8.5 mg/dL (8.5-10.1); Chloride 105 mmol/L (98-107); Creatinine, Serum 0.92 mg/dL (0.70-1.30); EST Glomerular Filtration Rate 87 mL/min (>60); Est Glom Filt Rate - Afr Amer 105 mL/min (>60); Estimated Creatinine Clearance 89.26 ml/min; Glucose 130 mg/dL (74-106); Potassium 4.2 mmol/L (3.5-5.1); Sodium Level 138 mmol/L (136-145)
[2022-01-01] MEDS: Senna/Docusate Sodium 1 Tablet 2 TABLET PO (07:49)
[2022-01-01] MEDS: Ascorbic Acid 500 MG Tablet 1500 MG PO (07:49)
--- NOTE | 2022-01-01 11:40 | CASEMGMT ---
RN CM COAT JOINER LOCKSTITCH CM to room to meet with patient for initial transition planning/care coordination assessment. CHRISSIE LASSITER introduced self and role at [facility]. Pt voices understanding and consents to assessment at this time. Pt sitting up in chair in room in no distress at this time. Pt is A/O at this time and answers all questions appropriately. Care providers, pharmacy, and demographics verified/updated at this time. PCP: Dr Lyon Specialists:Dr Dennis-ortho, Dr Segundo-geovanny mgmt Preferred Pharmacy: [facility] Retail Insurance:[employer] Prescription Benefit: Living Will/HPOA: Pt does not currently have LW/HCPOA and declines info at this time. Pt made aware that he can contact SW as an out-pt and make appt in the future if he decides he would like to talk with someone about this or would like to utilize [facility] social work for advanced directive completion. Given [employer] card with information and contact number. Pt expresses understanding. LNOK: , Alis Living Arrangements: Lives w/ in one-story home w/3 steps to enter. Independent prior to surgery. Transportation: Pt drives. has MS and does not drive. Pt states either his [id number] or dtr-in-law will take him home @ discharge. DME: States has the following DME: shower chair, grab bars, walker, Pt states no need for further DME at this time. HHC/SNF: No hx of either. Pt has appt @ [facility] for OP therapy this Wednesday 01/03. He is aware. Pt wishes to return home and states has no concerns with going home at time of discharge. CM to follow for any discharge planning/needs. Pt voices no concerns/needs at this time. Advised pt to ask for CM if any questions/concerns/needs arise. Voices understanding. PLAN: Home w/OP therapy. Tony GARZA RN, CM
--- NOTE | 2022-01-01 12:33 | DCINST_ITS ---
Discharge Instructions Diet Discharge Diet: No restrictions Activity May shower in (days): 3 Ice area for (Minutes): 20 (every 1-2 hours) Weight Bearing Status: Weight bearing as tolerated Dressing / Incision Call your doctor if your incision/area has: Increased Pain/ Swelling and Increased Redness Call your doctor if you observe: Fever of 101 or Higher, Shortness of breath and Chest pain Change Dressing in: 3 days Remove Dressing in: 3 days Cleanse incision/area with: Soap & Water Additional Dressing/Incision Instructions:: Do not shower 72hrs. Begin daily showering warm water antibacterial soap postop day #3( 72hrs Post-operatively) and then daily. Leave the dressing on for 72 hours postoperatively then may remove prior to first shower and change dressing daily after this until no drainage for 2 consecutive days then may leave open to air. Follow hip precautions that were reviewed in hospital. Wear compression stockings, may remove at night. Start physical therapy as directed in hospital. Follow prescriptions instructions do not take any other pain medication or differ dosing without consulting your physician. Do not take oral NSAIDs until blood thinner has been completed , then may begin the day after completion if needed . Call Dr. Dennis's office with any concerns. Follow Up Care Please Follow Up With: Zain Dennis DO When: 2 weeks Test Results: Test results from this visit will be discussed in further detail at your follow- up appointment, if applicable. Discharge Plan Admission Admit Date/Time: 12/31/21 10:13 Primary Reason for Your Visit: Left total hip arthroplasty Attending Provider: Zain Dennis Primary Care Provider: Jarrett Lyon Discharge Orders/Prescriptions Prescriptions: New oxycodone 5 mg tablet 5 - 10 mg PO Q4H PRN (Reason: pain) 7 Days Qty: 60 0RF acetaminophen [acetaminophen] 500 mg tablet 1,000 mg PO Q6H PRN Qty: 100 0RF Eliquis 2.5 mg tablet 2.5 mg PO BID Qty: 42 0RF No Action pravastatin 80 MG tablet 80 mg PO QHS levothyroxine 150 MCG tablet 150 mcg PO DAILY ascorbic acid (vitamin C) [Vitamin C] 1,500 mg Tablet Extended Release 1,500 mg PO DAILY Referrals / Follow Up: Jarrett Lyon MD [Primary Care Provider] - Disposition Disposition (needs filled in before D/C Order can be placed): Home, Self Care
--- NOTE | 2022-01-01 12:36 | PCM.PN.ORT ---
Subjective Subjective Patient states that he is doing extremely well having minimal pain/discomfort and no other concerns. Patient has been up walking and states that he has again minimal pain around the incision but the more he walks the more loosens up he states. He denies numbness or tingling in the extremity. Patient states that he feels great and is ready to get out of here Objective Data Objective Data Vital Signs: Vital Signs Temp Pulse Resp BP Pulse Ox O2 Del Method O2 Flow Rate 98.1 F 72 18 121/64 H 96 Room Air 2 01/01/22 07:41 01/01/22 07:41 01/01/22 07:41 01/01/22 07:41 01/01/22 11:33 01/01/22 08:03 01/01/22 07:41 Oxygen Flow Rate (L/min) 2 Oxygen Delivery Method Room Air Weight: 231 lb 7.766 oz Body Mass Index (BMI) 30.5 Intake & Output: Intake and Output for Last 24 Hours 12/30/21 12/31/21 01/01/22 23:59 23:59 23:59 Intake Total 3330 / 3330 1050 / 1050 Output Total 650 / 1250 1850 / 1850 Balance 2680 / 2080 -800 / -800 Lab / Micro Data Result Diagrams: 01/01/22 06:10 01/01/22 06:10 Labs: Laboratory Results - last 24 hr 01/01/22 06:10: WBC 14.6 H, RBC 4.19 L, Hgb 13.2, Hct 38.4 L, MCV 91.6, MCH 31.5, MCHC 34.4, RDW Std Deviation 42.2, RDW Coeff of Ana Rosa 12.5, Plt Count 206, MPV 10.6 01/01/22 06:10: Sodium 138, Potassium 4.2, Chloride 105, Carbon Dioxide 27.0, Anion Gap 6, BUN 14, Creatinine 0.92, Estim Creat Clear Calc 89.26, Est GFR (MDRD) Af Amer 105, Est GFR (MDRD) Non-Af 87, BUN/Creatinine Ratio 15.2, Glucose 130 H, Calcium 8.5 Micro: Microbiology 12/24/21 15:37 Swab (Method) Nasal Screen MRSA/MSSA - Final Physical Exam Const alert, oriented x3 and no apparent distress General Appearance: cooperative and well developed Extremity Extremity Narrative: Postop dressing (meplex) remains in place over incision site. There is no saturation of the dressing and there is no surrounding erythema, ecchymosis/bruising, or other skin changes. Area around the incision is soft and nontender. He has normal sensation to light touch around the incision and throughout the rest of the leg. Very minimal discomfort on palpation of the incision site. He has soft compartments throughout the upper and lower leg and no calf tenderness. Patient has intact motor function of the knee/ankle/foot. He has good strength with plantarflexion and dorsiflexion of the ankle. General Extremity: Negative for calf tenderness or edema Skin no rashes or lesions noted Neuro moves all extremities, no focal motor deficits and no sensory deficits noted Speech: speech abnormal Assessment & Plan Assessment/Plan (1) S/P total left hip arthroplasty: (2) Other acute postprocedural pain: PLAN: Patient seen in the hospital postop day 1 from left hip total arthroplasty. Patient is doing extremely well having minimal pains and no other concerns or complaints. Patient states he has been up walking and he states it is a little stiff until he gets to the doorway and after that he states he feels very little discomfort. Area around incision looks great without any signs of acute inflammation or infection. All of his compartments are soft without any firmness or induration. He is neurovascularly intact throughout the extremity. Discharge instructions to be given to patient prior to departure. Patient is to continue to be weightbearing as tolerated at home with the aid of a walker initially. We did discuss that he is not to be driving until further notice especially while taking any pain medications. Patient will follow up in our office in 2 weeks for 2-week postop check. He can notify the office sooner if he has any questions or concerns.
--- NOTE | 2022-01-01 14:58 | PHA.DC.MC ---
Pharmacy Service has performed discharge medication reconciliation and counseling for this patient. 1. APIXABAN 2.5MG PO BID 2. OXYCODONE 5-10MG PO Q4H PRN PAIN The patient's discharge medication list was reviewed for discrepancies and discrepancies were resolved. Home Medications levothyroxine 150 mcg tablet 150 mcg PO DAILY 10/10/18 pravastatin 80 mg tablet 80 mg PO QHS 10/10/18 ascorbic acid (vitamin C) 1,500 mg tablet,extended release 1,500 mg PO DAILY 12/20/21 acetaminophen 500 mg tablet 1,000 mg PO Q6H PRN #100 tabs 12/31/21 apixaban 2.5 mg tablet (Eliquis) 2.5 mg PO BID #42 tabs 12/31/21 oxycodone 5 mg tablet 5 - 10 mg PO Q4H PRN pain 7 days #60 tabs 12/31/21 The patient was counseled on the following discharge medications and changes in medications for homegoing were reviewed. The Reason for Use, instructions for use, and potential side effects were reviewed for all new medications. The patient's questions regarding all of their medications were answered. The patient was able to verbally demonstrate an understanding of their discharge medications.
== END 2022-01-01 15:08 | disposition home or self-care (01) ==
LOC: SDC 10:17 → MS3 10:18
PROVIDERS: Anesthesiology; Admitting Provider Orthopaedic Surgery; PCP Family Medicine; Referring Provider Orthopaedic Surgery; Visit Provider Orthopaedic Surgery
PROC: 0SRB0JZ Replacement of Left Hip Joint with Synthetic Substitute, Open Approach (ICD-10-PCS; CPT 27130; principal; 2021-12-31 08:05)
DX: M16.12 Unilateral primary osteoarthritis, left hip (principal); Z87.891 Personal history of nicotine dependence; E78.00 Pure hypercholesterolemia, unspecified; E03.9 Hypothyroidism, unspecified; Z79.899 Other long term (current) drug therapy; Z79.890 Hormone replacement therapy; M50.20 Other cervical disc displacement, unspecified cervical region
CPT/HCPCS: 27130; 01214; 36415; 73502; 80048; 82962; 82985; 83036; 83735; 84443; 85027; 85610; 85730; 86850; 86900; 86901; 87081; 88305; 88311; 96361; 96365; 96366; 97110; 97116; 97162; 97166; 97535; 99218; 99251; C1776; J7120; G0378; G0463; J2405

== ENCOUNTER 2022-02-05 16:00 | Outpatient (RCR) | payer BC, SELFPAY ==
--- NOTE | 2022-01-06 08:57 | HP.PTEVAL_ITS ---
Patient's Visit Information RAND MELVIN is a 66 year old M referred to Physical Therapy by Dr. Zain Dennis DO with a diagnosis of L BENEDICTO. Date of Evaluation: 01/03/22 Physical Therapist: Sukumar Powell DPT - Visit Plan Frequency: 2-3x /Week Duration: 6 Weeks - Subjective Pt. is here today for her initial evaluation with diagnosis of L BENEDICTO. DOS: 12/31/21. Pt. arrives use walker with good tolerance. Pt. reports no N/T in either LE. Pt. is sleeping in a chair, but sleeping well. Pt. reports overall doing well. Pt. pleased with surgery thus far. Pt. has been trying to walk more and more. He is allowed to take bandage off today. 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 Pt. is having some difficulty getting his leg straight. Pt. is hopeful to reduce symptoms in order to get back to all recreational and work activities without limitations. - Pain L hip Pain Intensity (Out of 10): 1 Pain Intensity Range: 0, 4 - Objective POSTURE: Pt. is able to stand without AD. Pt. does have slight flexed posture with increased lateral lean to R side. Lacks hip extension in stance. PALPATION: Pt. has minimal pain pain with palpation of LE. Negative homans sign. Bandage over L hip. NEURO: Pt. has normal sensation in B LEs to light and sharp touch. Pt. has normal DTR of BLEs. Pt. is able to rise on heels and toes without issues. ROM: RLE: Full motion no issues. Pt. has tightness in hamstring as well. LLE: HIP: flexion 70deg, abd 30deg, IR/ER not tested. Pt. has difficulty getting hip extension to neutral lacking 10deg secondary to pain. MMT: RLE 5/5 throughout. LLE: ankle/knee 5/5 throughout; hip: Flexion 3#, abd 0#, ext 0#. ER/IR not tested. GAIT: Pt. has slight flexed posture in stance, antalgic pattern during L stance phase. Decreased R step length noted. STAIRS: step to pattern loading RLE only. Pt. does have some expected pain with sit to stand, with increased RLE use to off load LLE. - Balance/Special Test Scores Lower Extremity Functional Score: 46 TUG Test Time Seconds: 19.2 30 Second Chair Rise Test Seconds: 8 WOMAC Total Score: 33 WOMAC Percentatge: 65.6300 - Goals Goal 1:: LTG: Pt. to be I with HEP for LE strengthening and ROM. Goal Time Frame: 4-6 Weeks Goal 2:: STG: Pt to sleep in bed without increase in symptoms. Goal Time Frame: 2 Weeks Goal 3:: STG: Pt. to ambulate with normal pattern with use of 1 crutch. Goal Time Frame: 2-4 Weeks Goal 4:: LTG: Pt. to ambulate without use of AD with out increase in symptoms and normal gait pattern. Goal Time Frame: 4-6 Weeks Goal 5:: LTG: PT. to have symmetrical strength of BLEs. Goal Time Frame: 4-6 Weeks Goal 6:: LTG: Pt. to negotiate steps with reciprocal pattern without increase in symptoms and with use of 1 HR. Goal Time Frame: 4-6 Weeks - Rehabilitation Potential Physical Therapy Diagnosis: Pt. has signs and symptoms consistent with L BENEDICTO D OS: 12/31/21. Pt. has marked hypomobility, LLE weakness, difficulty with gait and difficulty with ADLs. Pt. would benefit from PT to address the above limitations progressing back to all functional activities without limitations. Rehabilitation Potential: Excellent - Anticipated Interventions Patient/Client Instruction: Educate patient on: Condition, Plan of Care, Risk Factors, Benefits of Fitness Program For the Purpose of:: To improve decision making, To facilitate caregiver knowledge, To improve self management, To prevent re-injury, To improve ability to perform tasks related to life management, To improve tolerance to ADL's Therapeutic Exercise to Include: Strength training, Power training, Endurance training, Balance training, Postural training, Flexibilty training, Gait and locomotor training, Passive ROM, Active ROM, Dynamic Lumbar Stabilization For the Purpose of:: To decrease pain, To increase ROM, To improve nutrient delivery to tissue, To increase oxygenation perfusion, To improve muscle performance and motor function, To improve ability to perform ADL's, To increase tolerance to activity/condition/position, To improve performance and independence with ADL's, To improve ability of physical actions for home/community/work/leisure, To improve gait and locomotor functions, To improve health of tissue, To decrease soft tissue restriction, To increase flexibility/ROM Cryotherapy (ice pack, ice massage): Yes For the Purpose of:: To decrease pain, To decrease swelling/inflammation, To increase ROM Thank you for the opportunity to evaluate your patient. For Medicare and Medicare HMO plans, please review the plan of care and approve it. It will need to be FAXED BACK to us at [phone] for Medicare purposes. For Medicare only, by signing this I certify the plan of care. Please let me know if there are questions or concerns regarding this plan of care. Physician Signature: Date:
--- NOTE | 2022-02-06 07:29 | HP.PTREVAL ---
Dr. Zain Dennis, DO, It has been my pleasure to treat RAND VENKATA MELVIN over the last 10 visits for L BENEDICTO. Please see the progress note below for an update on the physical therapy plan of care! Subjective: Pt. reports being 95% better overall. Pt. pleased with progress. He reports no pain currently. Objective/Function: ROM: flexion 95deg actively, abd 45deg, ext 5deg, ADD and rotation not tested. Pt. has 70deg of HS length in 90/90 positioning. MMT: close to symmetrical LE strength throughout without increase in symptoms. GAIT: pt. is ambulating very well with a slight trunk rotation to L side during L stance phase. Pt. reports no pain, and had been improving with time. He reports no pain. STAIRS: normal with reciprocal pattern with out use of HR. TU.1 sec. Pt. is doing very well. He has 1 more appointment, but may cancel it if he is doing well. I am pleased with his progress at this point in time. Plan Plan: Pt. has 1 more appointment left. He is to try out his elipitical tomorrow and if everything went well he will cancel that appt. and be DC back to physician. Pt. is doing very well with his overall functional mobility and strength. Balance/Gait/Functional tests - Balance/Special Test Scores Lower Extremity Functional Score: 72 TUG Test Time Seconds: 6.1 Tug Test: <10 sec.=free mobile 30 Second Chair Rise Test Seconds: 8 WOMAC Total Score: 33 WOMAC Percentage: 65.6300 Goals Goal 1:: LTG: Pt. to be I with HEP for LE strengthening and ROM. Goal Time Frame: 4-6 Weeks Goal Progress: Goal Met Goal 2:: STG: Pt to sleep in bed without increase in symptoms. Goal Time Frame: 2 Weeks Goal Progress: Goal Met Goal 3:: STG: Pt. to ambulate with normal pattern with use of 1 crutch. Goal Time Frame: 2-4 Weeks Goal Progress: Goal Met Goal 4:: LTG: Pt. to ambulate without use of AD with out increase in symptoms and normal gait pattern. Goal Time Frame: 4-6 Weeks Goal Progress: Goal Met Goal 5:: LTG: PT. to have symmetrical strength of BLEs. Goal Time Frame: 4-6 Weeks Goal Progress: Goal Met Goal 6:: LTG: Pt. to negotiate steps with reciprocal pattern without increase in symptoms and with use of 1 HR. Goal Time Frame: 4-6 Weeks Goal Progress: Goal Met Anticipated Interventions Patient/Client Instruction: Educate patient on: Condition, Plan of Care, Risk Factors, Benefits of Fitness Program For the Purpose of:: To improve decision making, To facilitate caregiver knowledge, To improve self management, To prevent re-injury, To improve ability to perform tasks related to life management, To improve tolerance to ADL's Therapeutic Exercise to Include: Strength training, Power training, Endurance training, Balance training, Postural training, Flexibilty training, Gait and locomotor training, Passive ROM, Active ROM, Dynamic Lumbar Stabilization For the Purpose of:: To decrease pain, To increase ROM, To improve nutrient delivery to tissue, To increase oxygenation perfusion, To improve muscle performance and motor function, To improve ability to perform ADL's, To increase tolerance to activity/condition/position, To improve performance and independence with ADL's, To improve ability of physical actions for home/community/work/leisure, To improve gait and locomotor functions, To improve health of tissue, To decrease soft tissue restriction, To increase flexibility/ROM Cryotherapy (ice pack, ice massage): Yes For the Purpose of:: To decrease pain, To decrease swelling/inflammation, To increase ROM Please do not hesitate to contact me at [phone] by phone or if you have questions or concerns regarding this new plan of care! Sincerely, Sukumar Powell DPT
== END 2022-02-05 19:00 | disposition home or self-care (01) ==
LOC: PT 16:00
PROVIDERS: PCP Family Medicine; Referring Provider Orthopaedic Surgery; Visit Provider Orthopaedic Surgery
DX: M16.12 Unilateral primary osteoarthritis, left hip (principal)
CPT/HCPCS: 97110; 97161; 97164

== ENCOUNTER → 2022-10-27 | Outpatient (CLI) | payer BC, SELFPAY ==
[2022-10-27 15:45] LABS: T4 Free Direct 1.33 ng/dL (0.76-1.46); Thyroid Stim Hormone (TSH) 0.12 uIU/mL (0.358-3.74)
== END | disposition home or self-care (01) ==
PROVIDERS: PCP Family Medicine; Referring Provider Internal Medicine Endocrinology, Diabetes & Metabolism; Visit Provider Internal Medicine Endocrinology, Diabetes & Metabolism
DX: E06.3 Autoimmune thyroiditis (principal)
CPT/HCPCS: 36415; 84439; 84443

== ENCOUNTER 2024-05-31 07:08 | Outpatient (RCR) | payer BC, SELFPAY ==
--- NOTE | 2024-05-31 11:02 | HP.OTFCE_ITS ---
Task Lift Floor (Occasional 1-33% of Day): 100 Floor (Frequent 34-66% of Day): 50 Floor (Constant 67-100% of Day): 21 Floor PDL: Heavy Knee (Occasional 1-33% of Day): 100 Knee (Frequent 34-66% of Day): 50 Knee (Constant 67-100% of Day): 21 Knee PDL: Heavy Waist (Occasional 1-33% of Day): 100 Waist (Frequent 34-66% of Day): 50 Waist (Constant 67-100% of Day): 21 Waist PDL: Heavy Shoulder (Occasional 1-33% of Day): 55 Shoulder (Frequent 34-66% of Day): 27.5 Shoulder (Constant 67-100% of Day): 11.5 Shoulder PDL: Medium Overhead (Occasional 1-33% of Day): 55 Overhead (Frequent 34-66% of Day): 27.5 Overhead (Constant 67-100% of Day): 11.5 Overhead PDL: Medium Comments: Pt ranks as heavy for floor/knee/waist lift; pt ranks as medium for shoulder and overhead lift Work Activity/Posture Bending: Occasional Ability (1-33% of day) Squatting: Occasional Ability (1-33% of day) Kneeling: Occasional Ability (1-33% of day) Reaching out: Frequent Ability (34-66% of day) Reaching up: Frequent Ability (34-66% of day) Sitting: Frequent Ability (34-66% of day) Walking: Frequent Ability (34-66% of day) Standing: Frequent Ability (34-66% of day) Reference Reference: Duration Sedentary Sedentary Light Light Light Medium Medium Medium Heavy Very Heavy Heavy Occasional (0-33% of day) Frequent (34-66% of day) Constant (67-100% of day) 10 # Negligible Negligible 15 # 8 # Negligible 20 # 10# Negli. 35 # 18 # 7 # 50 # 25 # 10 # 75 # 100 # >100 # 38 # 50 # >50 # 15 # 20 # >20 # Patient Information Height: 6 ft Weight:: 106 kg Hand Dominance: R hand BP (Medication Use/Usual Values per pt report): No medication Medical History Medical History Including Restrictions: Thyroid and cholesterol medication; L thumb/ R finger surgeries years ago L hip replacement 2021 Diagnoses Diagnoses: M54.2 M79.603 Symptoms Symptoms: Pt reports occasional pain in extensor side of R UE and occasional back spasms; pt does receive spinal shots up to every 6 months, which have provided relief of symtoms; pt recently received his 3rd shot; began getting injections ~3.5 years ago, 3 total; injections have provided good relief for at least 6 months Pain Pain: Reports stiffness but denies pain at this time and throughout FCE; 0/10 Karla Pain questionnaire: Work History Work History: 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 Pt reports living in 1 story home with 1 entry step into home without handrail; pt does have handrails throughout home for who has MS; pt uses walk-in shower with grab bars and has a tub/shower with grab bars; pt does physically assist with car transfers d/t MS; pt reports a few trips/falls in 6 months, but no resulting injuries; Physical Examination Physical Examination: 97% 81 BPM ROM: UE - WNL LE - WNL Strength: FET Peak used to measure strength R elbow flexion: 43lb extension: 58 R shoulder flexion: 24lb external rotation: 26 L elbow flexion: 42.3lb extension: 52lb L shoulder flexion: 33lb external rotation: 30lb L knee flexion: 48lb extension: 45lb L hip flexion: 50lb R knee flexion: 50lb extension: 45lb R hip flexion: 48lb HR: 92 SPO2: 96 Right Flat Spring Assembler Strength Average: 84.66 Right Flat Spring Assembler Strength Percentile: 60th Left Flat Spring Assembler Strength Average: 86.66 Left Flat Spring Assembler Strength Percentile: 80th Right Lateral Pinch Average: 16.00 Right Lateral Pinch Percentile: 25th Left Lateral Pinch Average: 16.00 Left Lateral Pinch Percentile: 40th Right Tripod Pinch Average: 13.33 Right Tripod Pinch Percentile: 25th Left Tripod Pinch Average: 9.33 Left Tripod Pinch Percentile: 10th Comments: Pt reports decreased sensation in bilateral hands/fingers d/t rickie louses Pt did struggle to cow tender the pinch gauge d/t decreased sensation in bilateral finger tips; did drop the pinch gauge during assessment Sensation: Semme-[place] monofilament unable to feel 3.84 with any digits with the exception of R 3rd digit able to feel 4.3 with exception of R index and L thumb This information reveals diminished protective sensation in bilateral hands Fine Motor: 9 hold peg L hand Trial 1 - 27.7 Trial 2 - 26.4 Trial 3 - 23 Average - 25.7 50th percentile 9 hold peg Right hand Trial 1 - 25 Trial 2 - 25.7 Trial 3 - 21 Average 23.9 60th Percentile Balance: Pt does not use aide for ambulation; does report a few trips/falls in the past 6 month, but nothing resulting in injury per pt functional reach - 13 mild to no risk for falls Non Material Handling Activities Bending: Trial of 3 - 3 10 x at own pace - able to complete 10/10 HR 121; SPO2 96 10 x fast - able to complete 10/10 with increased speed HR 128; SPO2 - 95 does not require external support for bending task; no loss of balance noted; hinges at waist and able to touch floor Squatting: Trial of 3 - 3/3 10 x at own pace - able to complete 10/10 HR - 123; SPO2 - 97 10 x fast -able to complete 10/10 with increased speed HR - 138; SPO2 - 97 does not require external support for squatting task; no loss of balance noted Kneeling: Trial of 3 - 3/3 10 x at own pace; able to complete 10/10 HR - 150; SPO2 - 97 10 x fast - able to complete but not increase speed 10/10 HR - 160; SPO2 - 97 Able to complete without external support; provided with rest stop between sets of 10 HR returns to 115 after 3 minute rest break Reaching out/up: Trial of 3 - /3 10 x at own pace - able to complete HR - 120; SPO2 - 97 10 x fast - able to complete with increased speed; HR - 142; SPO2 - 96 completed in standing with no external support and no loss of balance Walking: Walking - pt reports he would be able to walk at least a mile without AD functionally in community Able to complete 1,466 ft without AD; tolerated well HR - 136 and SPO2 - 97 Standing: per pt report, would be able to stand for 8+ hours During FCE, pt able to stand for 20+ minutes unassisted Sittin+ hours sitting when driving During FCE, pt able to sit for 20+ minutes without needing frequent posture adjustment Climbing Stairs: Able to complete 1 flight without handrail with reciprocal gait pattern HR - 132 SPO2 - 96 Dynamic Occasional Lifting Capacity Floor Lift: Pt able to complete with 100lbs HR - 140; SPO2 97 Pt able to keep weight close to his body; did require min verbal cues for slower, more controlled decent onto counter Knee Lift: Pt able to complete with 100lbs HR - 143; SPO2 98 Pt able to keep weight close to body throughout lift Waist Lift: Pt able to complete with 100lbs HR - 155; SPO2 - 96 Able to keep weight close to body and take 2 side steps to his L Shoulder Lift: Pt able to complete with 55lbs HR - 137; SPO2 - 98 Pt able to lift weight onto stacked crate Overhead Lift: Pt able to complete with 55lbs HR - 145; SPO2 - 95 Pt able to lift weight onto stacked crates Carrying: Pt able to complete with 55 lbs HR - 160; SPO2 - 95 Pt keeps weight close to his body and is able to walk 46' and tolerated well
== END 2024-05-31 19:00 | disposition home or self-care (01) ==
LOC: OT 07:08
PROVIDERS: PCP Family Medicine; Referring Provider Anesthesiology Pain Medicine; Visit Provider Anesthesiology Pain Medicine
DX: M54.2 Cervicalgia (principal); M79.603 Pain in arm, unspecified
CPT/HCPCS: 97750